=== PATIENT | male | born 1990 | race Caucasian/White ===

== ENCOUNTER 2020-06-09 23:12 | Emergency (ER) | payer OTHER ==
[2020-06-09 23:16] VITALS: BP 161/99; PULSE 62; RESP 18; TEMP 98.1
--- NOTE | 2020-06-09 23:44 | ED ---
Abdominal Pain HPI - General Chief Complaint: Abdominal Pain Stated Complaint: Abdominal pain Time Seen by Provider: 06/09/20 23:18 Source: patient, RN notes reviewed, old records reviewed Mode of arrival: ambulatory Limitations: no limitations - History of Present Illness Initial Comments: Patient is a 30-year-old male presents emergency department today for evaluation with chief complaint of abdominal pain is chronic in nature. He has had a intermittently for months. He states that he has been having some diarrhea today. Lids of a dull pain with the midabdomen. Reports that his pain was more severe starting 8:00 tonight and his girlfriend encouraged him come the ER. He reports is now symptom resolving and is feeling better. Patient has any vomiting. He states that he has not followed up with regards to this chronic mid abdominal pain and diarrhea episodes. He states that he is now in the emergency department he feels better and be okay with going home. - Related Data Previous Rx's Medication Instructions Recorded Dicyclomine [Bentyl] 10 mg PO TID #12 capsule 06/09/20 Famotidine [Pepcid] 20 mg PO BID #20 tablet 06/09/20 Allergies Allergy/AdvReac Type Severity Reaction Status Date / Time No Known Allergies Allergy Verified 06/09/20 23:15 Review of Systems ROS Statement: Those systems with pertinent positive or pertinent negative responses have been documented in the HPI. ROS Other: All systems not noted in ROS Statement are negative. Past Medical History History of Any Multi-Drug Resistant Organisms: None Reported Smoking Status: Current every day smoker Past Alcohol Use History: None Reported Past Drug Use History: None Reported General Exam - General Exam Comments Initial Comments: 30 year old male, no distress. Limitations: no limitations General appearance: alert, in no apparent distress Head exam: Present: atraumatic, normocephalic, normal inspection Eye exam: Present: normal appearance, PERRL, EOMI. Absent: scleral icterus, conjunctival injection, periorbital swelling ENT exam: Present: normal exam, mucous membranes moist Neck exam: Present: normal inspection. Absent: tenderness, meningismus, lymphadenopathy Respiratory exam: Present: normal lung sounds bilaterally. Absent: respiratory distress, wheezes, rales, rhonchi, stridor Cardiovascular Exam: Present: regular rate, normal rhythm, normal heart sounds. Absent: systolic murmur, diastolic murmur, rubs, gallop, clicks GI/Abdominal exam: Present: soft, normal bowel sounds, other (Abdomen soft nontender). Absent: distended, tenderness, guarding, rebound, rigid Extremities exam: Present: normal inspection, full ROM, normal capillary refill. Absent: tenderness, pedal edema, joint swelling, calf tenderness Back exam: Present: normal inspection Neurological exam: Present: alert, oriented X3, CN II-XII intact Psychiatric exam: Present: normal affect, normal mood Skin exam: Present: warm, dry, intact, normal color. Absent: rash Course Vital Signs 06/09/20 23:14 Temperature 98.1 F Pulse Rate 62 Respiratory 18 Rate Blood Pressure 161/99 O2 Sat by Pulse 100 Oximetry Medical Decision Making - Medical Decision Making 30-year-old male presents to the ER today for evaluation for abdominal pain and a dull achy pain and states that he has been having significant cramping and diarrhea for months. Upon arriving to the ER states is feeling better. Was offered IV fluids and lab work. He states he prefers to with go without this is his pain is improving. Discussed he may be suffering from IBS. I discussed Patient in follow-up with a GI doctor will give the Patient Bentyl and Toradol for her discomfort at this time. He has no abdominal tenderness. No guarding. He states his pain is improved. I discussed Patient should follow-up with PCP as well. All questions answered. Disposition Clinical Impression: Chronic abdominal pain, Diarrhea, IBS (irritable bowel syndrome) Disposition: HOME SELF-CARE Condition: Good Instructions (If sedation given, give patient instructions): Abdominal Pain (ED) Additional Instructions: Please use medication as discussed. Please follow up with family doctor if symptoms have not improved over the next two days. [facility] or wor[facility] or for any other concerns. Prescriptions: Dicyclomine [Bentyl] 10 mg PO TID #12 capsule Famotidine [Pepcid] 20 mg PO BID #20 tablet Is patient prescribed a controlled substance at d/c from ED?: No Referrals: Mitchel Hobson DO [Primary Care Provider] - 1-2 days Janet Novak MD [STAFF PHYSICIAN] - 1-2 days Time of Disposition: 23:43
== END 2020-06-10 00:20 | disposition home or self-care (01) ==
LOC: EC 23:12
DX: K58.9 Irritable bowel syndrome, unspecified (principal); G89.29 Other chronic pain; F17.200 Nicotine dependence, unspecified, uncomplicated
CPT/HCPCS: 99284

== ENCOUNTER 2021-12-11 04:52 | Emergency (ER) | payer OTHER, BC ==
--- NOTE | 2021-12-11 06:17 | ED ---
Abdominal Pain HPI - General Chief Complaint: Abdominal Pain Stated Complaint: R Flank/Groin Pain Time Seen by Provider: 12/11/21 06:08 Source: patient, RN notes reviewed Mode of arrival: ambulatory Limitations: no limitations - History of Present Illness Initial Comments: This a 31-year-old male presents emergency Department chief complaint testicular pain, lower abdominal pain. Patient states started 2 days ago, gradually is worsening. He states it radiates different directions, states sometimes he has right-sided scrotal pain sometimes left-sided. He states consistent. Denies any trauma no swelling no redness. Patient states he has some difficulty urinating at times stating that just hurts. Patient has no penile discharge. - Related Data Previous Rx's Medication Instructions Recorded Dicyclomine [Bentyl] 10 mg PO TID #12 capsule 06/09/20 Famotidine [Pepcid] 20 mg PO BID #20 tablet 06/09/20 Doxycycline Monohydrate [Monodox] 100 mg PO Q12HR #14 cap 12/11/21 Allergies Allergy/AdvReac Type Severity Reaction Status Date / Time No Known Allergies Allergy Verified 12/11/21 04:56 Review of Systems ROS Statement: Those systems with pertinent positive or pertinent negative responses have been documented in the HPI. ROS Other: All systems not noted in ROS Statement are negative. Past Medical History Past Medical History: No Reported History History of Any Multi-Drug Resistant Organisms: None Reported Past Surgical History: Back Surgery Past Psychological History: No Psychological Hx Reported Smoking Status: Current every day smoker Past Alcohol Use History: None Reported Past Drug Use History: None Reported General Exam Limitations: no limitations General appearance: alert, in no apparent distress Head exam: Present: atraumatic, normocephalic, normal inspection Eye exam: Present: normal appearance, PERRL, EOMI. Absent: scleral icterus, conjunctival injection, periorbital swelling Respiratory exam: Present: normal lung sounds bilaterally. Absent: respiratory distress, wheezes, rales, rhonchi, stridor Cardiovascular Exam: Present: regular rate, normal rhythm, normal heart sounds. Absent: systolic murmur, diastolic murmur, rubs, gallop, clicks GI/Abdominal exam: Present: soft, normal bowel sounds. Absent: distended, tenderness, guarding, rebound, rigid exam: Present: normal inspection. Absent: testicular tenderness Neurological exam: Present: alert Skin exam: Present: warm, dry, intact, normal color. Absent: rash Course Vital Signs 12/11/21 12/11/21 04:57 07:48 Temperature 97.1 F L 96.7 F L Pulse Rate 82 81 Respiratory 16 12 Rate Blood Pressure 146/92 139/101 O2 Sat by Pulse 98 99 Oximetry Medical Decision Making - Medical Decision Making Patient has had a large amount of urine mucus there is some concern for STI. Patient given Rocephin, doxycycline. Patient will be discharged in stable condition parameters discussed. - Lab Data Lab Results 12/11/21 Range/Units 06:18 Urine Color Yellow Urine Appearance Clear (Clear) Urine pH 6.0 (5.0-8.0) Ur Specific [place] 1.039 H (1.001-1.035) Urine Protein 1+ H (Negative) Urine Glucose (UA) Negative (Negative) Urine Ketones Negative (Negative) Urine Blood Negative (Negative) Urine Nitrite Negative (Negative) Urine Bilirubin Negative (Negative) Urine Urobilinogen 2.0 (<2.0) mg/dL Ur Leukocyte Esterase Negative (Negative) Urine WBC 2 (0-5) /hpf Ur Squamous Epith Cells <1 (0-4) /hpf Amorphous Sediment Rare H (None) /hpf Hyaline Casts 9 H (0-2) /lpf Urine Mucus Many H (None) /hpf Disposition Clinical Impression: Scrotal pain, Dysuria Disposition: HOME SELF-CARE Condition: Stable Instructions (If sedation given, give patient instructions): Dysuria (ED) Additional Instructions: Please return to the Emergency Department if symptoms worsen or any other concerns. Prescriptions: Doxycycline Monohydrate [Monodox] 100 mg PO Q12HR #14 cap Is patient prescribed a controlled substance at d/c from ED?: No Referrals: None,Stated [Primary Care Provider] - 1-2 days Time of Disposition: 08:02
[2021-12-11 06:51] LABS: Amorphous Sediment,Urine Rare /hpf; Appearance,Urine Clear (Clear); Bilirubin,Urine Negative (Negative); Blood,Urine Negative (Negative); Color,Urine Yellow; Glucose,Urine (UA) Negative (Negative); Hyaline Casts,Urine 9 /lpf (0-2); Ketones,Urine Negative (Negative); Leukocyte Esterase,Urine Negative (Negative); Mucus,Urine Many /hpf; Nitrite,Urine Negative (Negative); Protein,Urine 1+ (Negative); Specific Gravity,Urine 1.039 (1.001-1.035); Squamous Epithelial Cell,Urine <1 /hpf (0-4); WBC,Urine 2 /hpf (0-5)
--- NOTE | 2021-12-11 07:44 | US ---
EXAMINATION TYPE: US scrotum with doppler. Grayscale and color Doppler Duplex imaging performed of juany murillo scrotum. DATE OF EXAM: 12/11/2021 COMPARISON: NONE CLINICAL HISTORY: pain. Right testicle pain for the past 3 days EXAM MEASUREMENTS: TESTICLES: Right Testicle: 4.5 x 3.3 x 2.6 cm Left Testicle: 4.4 x 3.0 x 2.7 cm EPIDIDYMIS HEAD: Right Epididymis: 0.8 x 1.1 x 1.2 cm Left Epididymis: 0.8 x 1.4 x 1.3 cm Doppler performed to assess for testicular vascularity; good bilateral color flow and waveforms are s een. There is no evidence of testicular torsion. Presence of hydroceles: no Presence of varicoceles: no No abnormalities seen at this time. IMPRESSION: No distinct abnormality appreciated at this time.
[2021-12-11 07:50] VITALS: BP 139/101; PULSE 81; RESP 12; TEMP 96.7
[2021-12-11] MEDS ORDERED: cefTRIAXone 1,000 MG VIAL (IM USE) IM STA (08:00)
[2021-12-12 14:06] LABS: C. trachomatis,PCR Negative (Neg,Equiv); Chlamydia trachomatis Source Urine; N. gonorrhoeae,PCR Negative (Neg,Equiv); Neisseria Source Urine
== END 2021-12-11 08:32 | disposition home or self-care (01) ==
LOC: EC 04:52
DX: N50.82 Scrotal pain (principal); R30.0 Dysuria; F17.200 Nicotine dependence, unspecified, uncomplicated
CPT/HCPCS: 76870; 81001; 87491; 87591; 93975; 99284